=== PATIENT | female | born 1965 | race Two or more races ===

== ENCOUNTER 2017-05-09 13:24 | Emergency (ER) | payer SELFPAY ==
[2017-05-09] MEDS ORDERED: ACETAMINOPHEN 325 MG TABLET PO ONE (14:12)
[2017-05-09] MEDS ORDERED: KETOROLAC TROMETHAMINE 60 MG/2 ML SDV IM ONE (14:55)
[2017-05-09] MEDS ORDERED: OSELTAMIVIR PHOSPHATE 75 MG CAPSULE PO ONE (14:55)
--- NOTE | 2017-05-09 14:57 | ER Document Report ---
ED Flu Like - General Chief Complaint: Flu Symptoms Stated Complaint: SHORTNESS OF BREATH,BODY ACHES Time Seen by Provider: 05/09/17 14:51 TRAVEL OUTSIDE OF THE [place] IN LAST 30 DAYS: No - HPI Patient complains to provider of: Fever, cough, myalgias. Notes: 51-year-old female, no chronic medical conditions presents the day and a half history of fever, myalgias, dry nonproductive cough. Patient had flu exposure at work and she thinks she has the flu. Patient did not get the influenza vaccine this year. - Related Data Allergies/Adverse Reactions: No Known Allergies Allergy (Verified 05/09/17 13:26) Past Medical History - Social History Smoking Status: Never Smoker Frequency of alcohol use: None Drug Abuse: None Family History: Reviewed & Not Pertinent Patient has suicidal ideation: No Patient has homicidal ideation: No Renal/ Medical History: Denies: Hx Peritoneal Dialysis Past Surgical History: Reports: Hx Section - Immunizations Hx Diphtheria, Pertussis, Tetanus Vaccination: Yes Review of Systems - Review of Systems Constitutional: Fever, Malaise, Weakness EENT: No symptoms reported Cardiovascular: No symptoms reported Respiratory: Cough Gastrointestinal: No symptoms reported Genitourinary: No symptoms reported Female Genitourinary: No symptoms reported Musculoskeletal: Muscle pain Skin: No symptoms reported Hematologic/Lymphatic: No symptoms reported Neurological/Psychological: No symptoms reported Physical Exam - Vital signs Vitals: Temp Pulse Resp BP Pulse Ox 102.0 F H 113 H 18 141/93 H 99 05/09/17 13:34 05/09/17 13:34 05/09/17 13:34 05/09/17 13:34 05/09/17 13:34 Interpretation: Normal - General General appearance: Appears well, Alert - HEENT Head: Normocephalic, Atraumatic Eyes: Normal Pupils: PERRL - Respiratory Respiratory status: No respiratory distress Chest status: Nontender Breath sounds: Normal Chest palpation: Normal - Cardiovascular Rhythm: Regular Heart sounds: Normal auscultation Murmur: No - Abdominal Inspection: Normal Distension: No distension Bowel sounds: Normal Tenderness: Nontender Organomegaly: No organomegaly - Back Back: Normal, Nontender - Extremities General upper extremity: Normal inspection, Nontender, Normal color, Normal ROM , Normal temperature General lower extremity: Normal inspection, Nontender, Normal color, Normal ROM , Normal temperature, Normal weight bearing. No: Nagi's sign - Neurological Neuro grossly intact: Yes Cognition: Normal Orientation: AAOx4 [place] Coma Scale Eye Opening: Spontaneous [place] Coma Scale Verbal: Oriented [place] Coma Scale Motor: Obeys Commands [place] Coma Scale Total: 15 Speech: Normal Motor strength normal: LUE, RUE, LLE, RLE Sensory: Normal - Psychological Associated symptoms: Normal affect, Normal mood - Skin Skin Temperature: Warm Skin Moisture: Dry Skin Color: Normal Course - Re-evaluation Re-evalutation: 05/09/17 14:56 Pleasant female presents with concerning symptoms of influenza. Patient found febrile and tachycardic on presentation. Patient given antipyretics in the emergency department. Patient will be sent to x-ray for a two-view, flu swab pending at this time, also given intramuscular ketorolac for myalgias. 05/09/17 15:19 Chest x-ray shows no pneumonia, patient feeling much improved DC with prescription for Tamiflu - Vital Signs Vital signs: Temp Pulse Resp BP Pulse Ox 102.0 F H 113 H 18 141/93 H 99 05/09/17 13:34 05/09/17 13:34 05/09/17 13:34 05/09/17 13:34 05/09/17 13:34 Discharge - Discharge Clinical Impression: Influenza Condition: Stable Instructions: Influenza ([facility]) [id number] Additional Instructions: See your PCP later this week
--- NOTE | 2017-05-09 15:14 | RADIOLOGY REPORT (SQ) ---
EXAM DESCRIPTION: CHEST PA/LAT COMPLETED DATE/TIME: 05/09/2017 3:06 pm REASON FOR STUDY: cough, fever COMPARISON: Two-view chest 07/25/2014 EXAM PARAMETERS: NUMBER OF VIEWS: two views TECHNIQUE: Digital Frontal and Lateral radiographic views of the chest acquired. RADIATION DOSE: NA LIMITATIONS: none FINDINGS: LUNGS AND PLEURA: No opacities, masses or pneumothorax. No pleural effusion. MEDIASTINUM AND HILAR STRUCTURES: No masses or contour abnormalities. HEART AND VASCULAR STRUCTURES: Heart normal size. No evidence for failure. BONES: No acute findings. HARDWARE: None in the chest. OTHER: No other significant finding. IMPRESSION: NO SIGNIFICANT RADIOGRAPHIC FINDING IN THE CHEST. TECHNICAL DOCUMENTATION: JOB ID: [id number] [employer]- All Rights Reserved
[2017-05-09 15:58] LABS: A TYPE INFLUENZA AG NEGATIVE (NEGATIVE); B INFLUENZA AG NEGATIVE (NEGATIVE)
[2017-05-09 16:01] VITALS: BP 127/79
== END 2017-05-09 16:01 | disposition home or self-care (01) ==
LOC: ER 13:24
DX: J11.1 Influenza due to unidentified influenza virus with other respiratory manifestations (principal); R06.02 Shortness of breath; M79.1 Myalgia; R50.9 Fever, unspecified; R05 Cough
CPT/HCPCS: 99283; 96372; 87804; 71046; J1885; J3490